=== PATIENT | female | born 1990 | race Caucasian/White ===

== ENCOUNTER 2017-01-07 23:52 | Emergency (ER) | payer OTHER ==
[~2017-01-07] VITALS: Ht 160 cm; Wt 56.5 kg
[~2017-01-07 23:52] MED LIST: FERR240T9 PO; PREN-39 PO
[2017-01-08 00:06] VITALS: Ht 160 cm; Wt 56.5 kg
[2017-01-08] MEDS ORDERED: predniSONE 20 MG TAB PO ONE (02:00)
[2017-01-08] MEDS ORDERED: DIPHENHYDRAMINE 50 MG CAP PO ONE (02:00)
--- NOTE | 2017-01-08 02:32 | ERA ---
ER Documentation Chief Complaint Date/Time DATE: 01/08/17 TIME: 02:22 Chief Complaint sp mosquito bite yesterday, left hand swelling HPI This is a 18-year-old female presents one day after being bit by many mosquitoes. Patient is complaining of pruritus and mild swelling. Patient denies any pain, open wounds, trauma to the area or history of allergic reactions. Patient denies fever, difficulty breathing, nausea, vomiting, diarrhea, constipation, dysuria, hematuria, alleviating factors. Patient has tried Zantac 1 yesterday with minimal relief of pruritus. Patient is mostly complaining of the itching and has no concern about the swelling. Patient has no medical conditions and denies drug and alcohol use. ROS All systems reviewed and are negative except as per history of present illness. Medications Home Meds Reported Medications Ferrous Gluconate (Iron) 1 Tab Tablet, 1 TAB PO BID, TAB 11/25/15 Vits W-Ca,Fe,Fa(<1MG) ( Vitamins) 1 Tab Tablet, 1 TAB PO DAILY , TAB 11/25/15 Allergies Allergies: Coded Allergies: No Known Allergies (Verified Allergy, Mild, 12/31/15) PMhx/Soc History of Surgery: No Anesthesia Reaction: No Hx Neurological Disorder: No Hx Respiratory Disorders: No Hx Cardiac Disorders: No Hx Psychiatric Problems: No Hx Miscellaneous Medical Probl: No Hx Alcohol Use: No Hx Substance Use: No Hx Tobacco Use: No Smoking Status: Never smoker Physical Exam Vitals Vital Signs Date Time Temp Pulse Resp B/P Pulse Ox O2 Delivery O2 Flow Rate FiO2 01/08/17 00:06 98.5 73 20 128/73 98 Physical Exam Const: Healthy-appearing. Well-nourished. Well-developed. No acute distress. Skin: Left arm is erythematous and patchy mildly swollen areas with no pitting edema. Described as pruritic. There are no petechiae, ulcer, induration, or jaundice. Good turgor. Pulm: Good air movement. No rhonchi, wheezes or crackles in all lobes bilaterally auscultated. No abnormal tympani or dullness on percussion in all lobes bilaterally. Equal and appropriate lung expansion. No abnormal tactile fremitus palpated. No retractions, stridor, tripoding or drooling. Oral: No oral edema visualized. Mucous membranes moist and pink. Neck: No cervical lymphadenopathy, masses or goiter palpated. Full range of motion. Supple. Trachea midline. ~ No meningismus. Head: Normocephalic, Atraumatic. Eyes: Non-injected; No scleral erythema, discharge or foreign body. EOMI and AMARIS bilaterally. Ears: Normal External Ears, EACs clear, TM normal bilaterally without erythema. Nose: Normal nose without discharge, septal deviation, or sinus tenderness. Cardio: Regular rate and rhythm; No murmurs, gallops or rubs auscultated. No JVD grossly observed. Radial and posterior tibial pulses 2+ bilaterally. No cyanosis. Capillary refill less than 2 seconds. Abd: Soft, non tender, non distended. No guarding, masses. Normal bowel sounds. No McBurney's point tenderness. MS: Normal motor strength, normal tone with gross examination. Back: No midline, flank or CVA tenderness. Ext: No cyanosis, edema or palpable cord. Normal movement of all extremities grossly observed. Neur: Awake, alert and oriented x3. Neurovascularly intact bilaterally. Psych: Active and alert. Normal Mood and Affect. Oriented x3. Results 24 hrs Current Medications Medications (Trade) Dose Ordered Sig/Jesenia Route PRN Reason Start Time Stop Time Status Last Admin Dose Admin Prednisone (Prednisone) 60 mg ONCE ONCE PO 01/08/17 02:00 01/08/17 02:01 DC 01/08/17 01:42 Diphenhydramine HCl (Benadryl) 50 mg ONCE ONCE PO 01/08/17 02:00 01/08/17 02:01 DC 01/08/17 01:41 Procedures/MDM Patient is being worked up and evaluated for acute rash 24 hours status post multiple mosquito bites with qualities as described in the history and physical exam. ED treatment consisted of 60 mg of prednisone and 1 mg/kg of Benadryl IM. Patient had good resolution of symptoms. There is no difficulty breathing. At this time, I have little suspicion for infection/cellulitis, vasculitis, erythema multiforme, contact dermatitis, pityriasis rosea, or erythema migrans / lyme disease. This time I no longer have a suspicion for endangerment of the airway. Patient has stable vitals and her current condition is appropriate for discharge. Patient will be discharged at this time with discharge instructions return precautions. Medications will include 40 mg of prednisone p.o. 4 days and diphenhydramine 25 mg 1-2 times as needed 10 days for itching. Departure Diagnosis: Primary Impression: Reaction to insect bite Additional Impression: Insect bite Qualified Code: W57.XXXA - Insect bite, initial encounter Condition: Stable Additional Instructions: Follow up with your PCP within the next 1-3 days for a more thorough evaluation and a possible referral to a specialist. Return the the emergency department immediately if symptoms worsen or change. If you have any questions regarding medications, ask your pharmacist or us before you leave. If any adverse reactions occur while taking your medications, discontinue the treatment and return to the emergency department immediately. Take your medications as directed, and complete the entire course of treatment. ANTONIA HAMMER PA-C Jan 08, 2017 02:32
[2017-01-08] MEDS ORDERED: PRED20TA PO (02:34)
[2017-01-08] MEDS ORDERED: BEN25 PO (02:34)
== END 2017-01-08 02:41 | disposition home or self-care (01) ==
LOC: FTE 23:52
DX: S60.562A Insect bite (nonvenomous) of left hand, initial encounter (principal); W57.XXXA Bitten or stung by nonvenomous insect and other nonvenomous arthropods, initial encounter; Y92.9 Unspecified place or not applicable
CPT/HCPCS: J7512; Z7502; Z7610; 99283